=== PATIENT | female | born 1975 | race African-American/Black ===

== ENCOUNTER 2021-01-21 03:58 | Inpatient (IN) | payer OTHER ==
[2021-01-21] VITALS (8 sets, daily range): BP systolic 90–132; BP diastolic 60–80
[~2021-01-21] VITALS: Ht 167.6 cm; Wt 69.9 kg
--- NOTE | 2021-01-21 04:02 | NUR ---
PT AAOX4. BIBSELF C/O THAT SHE WAS TOLD BY THE [facility] THAT HER HGB LEVEL WAS LOW, POSSIBLY IN THE 5'S ON 01/19. PLACED IN BED 12 ON MONITOR AND PULSE OX. VITALS STABLE. DENIES ANY BLEEDING. -SIGNS OF BLEEDING NOTED. AWAITING ER MD FOR EVAL AND ORDERS.
[2021-01-21 05:27] LABS: BASOPHILS # (AUTO) 0.1 K/uL (0.0-0.2); BASOPHILS % (AUTO) 1.4 % (0.0-2.0); EOSINOPHILS % (AUTO) 1.7 % (0.0-6.0); HEMATOCRIT 21 % (33-45); LYMPHOCYTES # (AUTO) 2.2 K/uL (0.8-4.8); LYMPHOCYTES % (AUTO) 29.5 % (20.0-44.0); MEAN CORPUSCULAR HGB CONC 28 g/dl (31.0-36.0); MEAN CORPUSCULAR VOLUME 58 fL (82-100); MONOCYTES # (AUTO) 0.5 K/uL (0.1-1.30); MONOCYTES % (AUTO) 6.7 % (2.0-12.0); NEUTROPHILS # (AUTO) 4.6 K/uL (1.8-8.9); NEUTROPHILS % (AUTO) 60.7 % (43.0-81.0); PLATELET COUNT (AUTO) 478 K/uL (150-450); RED BLOOD CELL COUNT(AUTO) 3.59 MIL/uL (4.0-5.2); WHITE BLOOD COUNT (AUTO) 7.6 K/uL (4.3-11.0)
--- NOTE | 2021-01-21 05:39 | NUR ---
STEPHANIEID SWABBED, SENT TO LAB.
[2021-01-21 05:40] LABS: HEMOGLOBIN 5.9 g/dL (11.5-14.8)
[2021-01-21 05:46] LABS: CARBON DIOXIDE 25 mmol/L (21-32); CHLORIDE 102 mmol/L (98-107); CREATININE 0.7 mg/dL (0.6-1.3); GLUCOSE 90 mg/dL (74-106); POTASSIUM 3.1 mmol/L (3.5-5.1); SODIUM SERUM 136 mmol/L (136-145); UREA NITROGEN, BLOOD 9 mg/dL (7-18)
[2021-01-21 05:51] LABS: ALANINE AMINOTRANSFERASE 17 U/L (12-78); ALBUMIN 4.1 g/dL (3.4-5.0); ALKALINE PHOSPHATASE 50 U/L (46-116); ASPARTATE AMINOTRANSFERASE 14 U/L (15-37); BILIRUBIN,DIRECT 0.1 mg/dL (0.0-0.2); BILIRUBIN,TOTAL 0.6 mg/dL (0.2-1.0); TOTAL PROTEIN, SERUM 7.9 g/dL (6.4-8.2)
[2021-01-21] MEDS ORDERED: Z GUARD REMEDY 2 OZ OINT TP PRN (06:00)
[2021-01-21] MEDS ORDERED: ACETAMINOPHEN 325 MG TABLET PO PRN (06:00)
[2021-01-21] MEDS ORDERED: MAGNESIUM HYDROXIDE 30 ML UDC PO PRN (06:00)
[2021-01-21] MEDS ORDERED: MAG HYDROX/AL HYDROX/SIMETH 30 ML UDC PO PRN (06:00)
[2021-01-21] MEDS ORDERED: ONDANSETRON HCL/PF 4 MG/2 ML VIAL IVP PRN (06:00)
[2021-01-21 06:06] LABS: EOSINOPHILS % (MANUAL) 1 % (0-4); LYMPHOCYTES % (MANUAL) 40 % (16-48); MONOCYTES % (MANUAL) 4 % (0-11.0); NEUTROPHILS % (MANUAL) 55 (42-76)
--- NOTE | 2021-01-21 06:17 | NUR ---
PT SIGNED BLOOD CONSENT. ER SPOKE TO PT REGARDING TRANSFUSION.
--- NOTE | 2021-01-21 06:42 | NUR ---
CALLED HOUSE SUP FOR TELE BED
--- NOTE | 2021-01-21 07:43 | NUR ---
MD TO MD IN PROGRESS.
--- NOTE | 2021-01-21 08:02 | NUR ---
BED 117-2
--- NOTE | 2021-01-21 08:11 | NUR ---
Report given to nurse Bryce.
--- NOTE | 2021-01-21 08:33 | NUR ---
The patient is transfered to room 117 in stable condition and per policy.
--- NOTE | 2021-01-21 08:40 | NUR ---
Patient received from ED. Patient assessed , vitals checked. Assessments done. Tele box applied upon arrival. Will continue to monitor. Call light with in reach. left ac 20 gauge saline lock upon arrival and patent.
[2021-01-21] MEDS ORDERED: PANTOPRAZOLE 40 MG VIAL IV SCH (09:00)
[2021-01-21] MEDS: IV NS 0.9% 1,000 ML IV PRN (09:04)
[2021-01-21 10:03] LABS: IRON, SERUM 30 ug/dl (50-175); TOTAL IRON BINDING CAPACITY 466 ug/dl (250-450)
[2021-01-21 10:17] LABS: FERRITIN 7 ng/mL (8-388)
[2021-01-21 14:49] LABS: HEMOGLOBIN 6.8 g/dL (11.5-14.8)
--- NOTE | 2021-01-21 18:50 | NUR ---
RN CLOSING NOTES Patient is alert and oriented. Patient is breathing even and unlabored. On room air with 02 saturation of 98%> No c/o pain or discomfort. Left ac 20 gauze running fluids at 75cc/hour. Patient is s/p 2 units of Prbc with no s/s of reaction. Patient had blood drawn one hour post each unit for H and H per MD Peacock. Will endorse to next shift for ADITYA. Call light with in reach.
--- NOTE | 2021-01-21 19:45 | NUR ---
TELE/RN OPENING NOTE PATIENT CURRENTLY RESTING IN BED. AWAKE, ALERT AND ORIENTED X 4. ABLE TO MAKE NEEDS KNOWN. NO COMPLAINTS OF PAIN AT THIS TIME. IV ACCESS TO LEFT AC #20G INTACT AND PATENT. CONTINUES ON IV NS 0.9% @ 75ML/HR. CONTINUES ON REGULAR DIET WITH NO S/SX OF ASPIRATION NOTED. CALL LIGHT WITHIN REACH. ASPIRATION, FALL AND SAFETY PRECAUTIONS MAINTAINED. WILL CONTINUE TO MONITOR.
[2021-01-21 20:12] LABS: HEMOGLOBIN 7.9 g/dL (11.5-14.8)
[2021-01-22] VITALS: BP 95/51
[2021-01-22 04:00] VITALS: BP 104/56
[2021-01-22 06:30] LABS: BASOPHILS # (AUTO) 0.1 K/uL (0.0-0.2); BASOPHILS % (AUTO) 1.5 % (0.0-2.0); EOSINOPHILS % (AUTO) 2.3 % (0.0-6.0); HEMATOCRIT 27 % (33-45); HEMOGLOBIN 8.1 g/dL (11.5-14.8); LYMPHOCYTES # (AUTO) 1.8 K/uL (0.8-4.8); LYMPHOCYTES % (AUTO) 25.1 % (20.0-44.0); MEAN CORPUSCULAR HGB CONC 30 g/dl (31.0-36.0); MEAN CORPUSCULAR VOLUME 65 fL (82-100); MONOCYTES # (AUTO) 0.6 K/uL (0.1-1.30); MONOCYTES % (AUTO) 7.7 % (2.0-12.0); NEUTROPHILS # (AUTO) 4.6 K/uL (1.8-8.9); NEUTROPHILS % (AUTO) 63.4 % (43.0-81.0); PLATELET COUNT (AUTO) 409 K/uL (150-450); RED BLOOD CELL COUNT(AUTO) 4.15 MIL/uL (4.0-5.2); WHITE BLOOD COUNT (AUTO) 7.3 K/uL (4.3-11.0)
[2021-01-22] MEDS: IV NS 0.9% 1,000 ML IV PRN (06:32)
[2021-01-22 06:55] LABS: CALCIUM, SERUM 8.7 mg/dL (8.5-10.1); CREATININE 0.7 mg/dL (0.6-1.3); PHOSPHORUS 4.6 mg/dL (2.5-4.9); POTASSIUM 4.3 mmol/L (3.5-5.1)
--- NOTE | 2021-01-22 07:30 | NUR ---
RN OPENING NOTES Patient is alert and oriented. Patient is breathing even and unlabored. On room air with 02 saturation of 96%. No c/o pain or discomfort. Left ac 20 gauze running fluids at 75cc/hour. Call light with in reach.
[2021-01-22 08:34] LABS: EOSINOPHILS % (MANUAL) 3 % (0-4); LYMPHOCYTES % (MANUAL) 25 % (16-48); MONOCYTES % (MANUAL) 6 % (0-11.0); NEUTROPHILS % (MANUAL) 66 (42-76)
[2021-01-22] MEDS ORDERED: FERR325T23 PO (10:04)
--- NOTE | 2021-01-22 13:55 | NUR ---
Patient was discharged to home. Patient's vitals assessed. Patient seen by MD. No c/o sob or pain. On room air with 02 sat of 98%. IV to left ac discontinued. Patient educated regarding health and anemia. Instructed to follow up with pcp in one week and [facility]. Patient instructed to go with family or uber and agreed but refused while waiting in the lobby. Patient left the facility in her own car.
--- NOTE | 2021-01-22 14:33 | NUR ---
Received call from Dr COE that patient is ok to drive home
[2021-01-23] MEDS ORDERED: PANTOPRAZOLE 40 MG TABLET.DR PO SCH (07:30)
== END 2021-01-22 13:36 | disposition home or self-care (01) | DRG 663 ==
LOC: ER 03:58 → TELE1 08:19
PROVIDERS: ADMIT Family Medicine; ATTEND Family Medicine
PROC: 30233N1 Transfusion of Nonautologous Red Blood Cells into Peripheral Vein, Percutaneous Approach (ICD-10-PCS; principal; 2021-01-21)
DX: D50.9 Iron deficiency anemia, unspecified (principal); E87.6 Hypokalemia; N92.0 Excessive and frequent menstruation with regular cycle; Z20.822 Contact with and (suspected) exposure to COVID-19
CPT/HCPCS: 36415; 80048-TC; 80076-TC; 82728-TC; 83540-TC; 83735-TC; 84100-TC; 84484-TC; 84703-TC; 85025-TC; 85027-TC; 85730-TC; 86850-TC; 87081-TC; C9113; C9803; G0378; J7030; J7050; P9016